=== PATIENT | female | born 1965 | race Caucasian/White ===

== ENCOUNTER 2018-03-16 06:07 | Day surgery (SDC) | payer OTHER ==
[~2018-03-16] VITALS: Ht 152.4 cm; Wt 75.5 kg
[~2018-03-16 06:07] MED LIST: ACET-48 PO; ACID1TAB4 PO; ARIP30TA11 PO; ASCO500 PO; CARB-224 AU; CRAN500C3 PO; CYAN100 PO; DOCU100C19 PO; FOLI1TAB15 PO; GUAI100S42 PO; LOPE2CAP PO; LORA10TA7 PO; MIRALAX PO; MOM30 PO; MULT-1112 PO; OLAN5TAB2 PO; OLAN7.5T9 PO; OLOP5DRO14 OU; OXYB5TAB10 PO; RINGERS SOLUTION,LACTATED 1,000 ML IV ONE; SIME80TA12 PO; TRAM50TA4 PO; [UNRECOGNIZED DRUG - CODE] PO
[2018-03-16] MEDS ORDERED: DEXAMETHASONE SOD PHOS 4 MG/ML VIAL IVP ONE (06:08)
[2018-03-16] MEDS ORDERED: LIDOCAINE HCL/PF 2% 5 ML VIAL IM ONE (06:08)
[2018-03-16] MEDS ORDERED: ONDANSETRON HCL 4 MG/2 ML VIAL IVP ONE (06:08)
[2018-03-16] MEDS ORDERED: PROPOFOL 1% 20 ML VIAL IVP ONE (06:08)
[2018-03-16] MEDS ORDERED: MIDAZOLAM HCL 2 MG/2 ML VIAL IVP ONE (06:08)
[2018-03-16] MEDS ORDERED: SUCCINYLCHOLINE CHLORIDE 20 MG/ML 10 ML VIAL IVP ONE (06:08)
[2018-03-16] MEDS ORDERED: RINGERS SOLUTION,LACTATED 1,000 ML IV ONE (06:45)
[2018-03-16 06:49] LABS: BASOPHILS % (AUTO) 0.3 % (0.0-2.0); EOSINOPHILS % (AUTO) 0 % (1.0-6.0); HEMATOCRIT 41.1 % (36-46); HEMOGLOBIN 14.5 g/dL (12.0-16.0); LYMPHOCYTES # (AUTO) 1.3 K/uL (1.0-4.8); LYMPHOCYTES % (AUTO) 19.3 % (22.0-44.0); MEAN CORPUSCULAR HEMOGLOBIN 34.6 pg (26.0-34.0); MEAN CORPUSCULAR HGB CONC 35.2 G/dL (31.0-37.0); MEAN CORPUSCULAR VOLUME 98 fL (80-100); MONOCYTES # (AUTO) 0.3 K/uL (0.1-1.0); MONOCYTES % (AUTO) 5.1 % (2.0-9.0); NEUTROPHILS # (AUTO) 5.2 K/uL (1.8-7.7); NEUTROPHILS % (AUTO) 75.3 % (40.0-70.0); PLATELET COUNT (AUTO) 253 K/uL (150-450); RED BLOOD CELL COUNT(AUTO) 4.18 MIL/uL (4.00-5.20); RED CELL DISTRIBUTION WIDTH 13.6 % (11.5-14.5)
[2018-03-16 07:08] LABS: INR 0.9 (0.9-1.1); PROTHROMBIN TIME 9.8 SEC (9.4-11.6)
[2018-03-16 07:13] LABS: ALANINE AMINOTRANSFERASE 27 U/L (12-78); ALBUMIN 3.3 g/dL (3.4-5.0); ALKALINE PHOSPHATASE 134 U/L (46-116); ANION GAP 9 mmol/L (8-16); ASPARTATE AMINOTRANSFERASE 20 U/L (15-37); BILIRUBIN,TOTAL 0.4 mg/dL (0.1-1.0); CALCIUM, TOTAL 8.5 mg/dL (8.8-10.5); CARBON DIOXIDE 29 mmol/L (22-29); CHLORIDE 105 mmol/L (98-107); CREATININE 0.61 mg/dL (0.60-1.30); GLOMERULAR FILTR. RATE CALC > 60 mL/min (>60); GLUCOSE,RANDOM 109 mg/dL (70-110); POTASSIUM 3.1 mmol/L (3.5-5.1); SODIUM SERUM 143 mmol/L (136-145); TOTAL PROTEIN, SERUM 6.8 g/dL (6.4-8.2); UREA NITROGEN, BLOOD 16 mg/dL (7-18)
[2018-03-16] MEDS ORDERED: POTASSIUM CHL 40 MEQ/D5-0.45NS 1,000 ML IV ONE (08:15)
[2018-03-16] MEDS ORDERED: CLINDAMYCIN PHOS 150 MG/ML 4 ML VIAL ONE (08:23)
[2018-03-16] MEDS ORDERED: SODIUM CHLORIDE 0.9% 250 ML IV ONE (08:30)
[2018-03-16] MEDS ORDERED: FentaNYL CITRATE-PF 100 MCG/2 ML VIAL IVP PRN (09:15)
[2018-03-16] MEDS ORDERED: MIDAZOLAM HCL 2 MG/2 ML VIAL ONE (09:23)
[2018-03-16] MEDS ORDERED: MIDAZOLAM HCL 2 MG/2 ML VIAL IVP STA (09:34)
== END 2018-03-16 12:00 | disposition home or self-care (01) ==
LOC: SURGERY 06:07
PROVIDERS: ATTEND Dentist General Practice
DX: K05.30 Chronic periodontitis, unspecified (principal); K21.9 Gastro-esophageal reflux disease without esophagitis; E87.6 Hypokalemia; Q04.8 Other specified congenital malformations of brain; M16.9 Osteoarthritis of hip, unspecified; I10 Essential (primary) hypertension; F41.8 Other specified anxiety disorders; F78 Other intellectual disabilities; Z79.01 Long term (current) use of anticoagulants; Z88.1 Allergy status to other antibiotic agents; Z88.0 Allergy status to penicillin; Z79.891 Long term (current) use of opiate analgesic; Z79.899 Other long term (current) drug therapy
CPT/HCPCS: 36415; 41899; 71045; 80053; 85025; 85610; 85730; 93005; J0330; J1100; J2250; J2405; J2704; J3480; J3490; J7050; J7120; S0077

== ENCOUNTER 2020-02-16 05:53 | Day surgery (SDC) | payer OTHER, MEDICARE, MEDICAID ==
[~2020-02-16] VITALS: Ht 152.4 cm; Wt 64.4 kg
[~2020-02-16 05:53] MED LIST changes: -ACET-48 PO; +ACET-49 PO; +BISM262O11 PO; -CYAN100 PO; +CYAN100T3 PO; +DOCU-281 PO; -DOCU100C19 PO; -OXYB5TAB10 PO; +OXYB5TAB15 PO; -RINGERS SOLUTION,LACTATED 1,000 ML IV ONE; -[UNRECOGNIZED DRUG - CODE] PO
[2020-02-16] MEDS ORDERED: SENN8.6T20 PO (06:14)
[2020-02-16] MEDS ORDERED: LEVO25TA9 PO (06:14)
[2020-02-16] MEDS ORDERED: RINGERS SOLUTION,LACTATED 1,000 ML IV ONE (06:30)
[2020-02-16 08:04] LABS: BASOPHILS % (AUTO) 0.3 % (0.0-2.0); EOSINOPHILS % (AUTO) 0 % (1.0-6.0); HEMATOCRIT 38.7 % (36-46); HEMOGLOBIN 13.3 g/dL (12.0-16.0); LYMPHOCYTES # (AUTO) 0.5 K/uL (1.0-4.8); LYMPHOCYTES % (AUTO) 8.6 % (22.0-44.0); MEAN CORPUSCULAR HEMOGLOBIN 35.3 pg (26.0-34.0); MEAN CORPUSCULAR HGB CONC 34.5 G/dL (31.0-37.0); MEAN CORPUSCULAR VOLUME 102 fL (80-100); MONOCYTES # (AUTO) 0.2 K/uL (0.1-1.0); MONOCYTES % (AUTO) 3.8 % (2.0-9.0); NEUTROPHILS # (AUTO) 4.6 K/uL (1.8-7.7); PLATELET COUNT (AUTO) 213 K/uL (150-450); RED BLOOD CELL COUNT(AUTO) 3.78 MIL/uL (4.00-5.20); RED CELL DISTRIBUTION WIDTH 13.7 % (11.5-14.5)
[2020-02-16 08:10] LABS: NEUTROPHILS % (AUTO) 87.3 % (40.0-70.0)
[2020-02-16 08:13] LABS: ANION GAP 12 mmol/L (8-16); CALCIUM, TOTAL 8.1 mg/dL (8.8-10.5); CARBON DIOXIDE 26 mmol/L (22-29); CHLORIDE 108 mmol/L (98-107); CREATININE 0.57 mg/dL (0.60-1.30); GLOMERULAR FILTR. RATE CALC > 60 mL/min (>60); GLUCOSE,RANDOM 144 mg/dL (70-110); POTASSIUM 3.4 mmol/L (3.5-5.1); SODIUM SERUM 146 mmol/L (136-145); UREA NITROGEN, BLOOD 14 mg/dL (7-18)
[2020-02-16 08:19] LABS: ALANINE AMINOTRANSFERASE 18 U/L (12-78); ALBUMIN 2.9 g/dL (3.4-5.0); ALKALINE PHOSPHATASE 141 U/L (46-116); ASPARTATE AMINOTRANSFERASE 7 U/L (15-37); BILIRUBIN,TOTAL 0.3 mg/dL (0.1-1.0); TOTAL PROTEIN, SERUM 6.3 g/dL (6.4-8.2)
[2020-02-16 08:24] LABS: PROTHROMBIN TIME 9.8 SEC (9.4-11.6)
[2020-02-16] MEDS ORDERED: CLINDAMYCIN PHOS 150 MG/ML 4 ML VIAL ONE (09:10)
[2020-02-16] MEDS ORDERED: SODIUM CHLORIDE 0.9% 100 ML ONE (09:10)
[2020-02-16 09:47] LABS: GLUCOMETER DEV NAME(LOC) PVLAB.13
[2020-02-16] MEDS ORDERED: HYDROmorphone 2 MG/ML SYRINGE IVP PRN (10:00)
[2020-02-16] MEDS ORDERED: FentaNYL CITRATE-PF 100 MCG/2 ML VIAL IVP PRN (10:00)
[2020-02-16] MEDS ORDERED: MEPERIDINE-PF 25 MG/ML VIAL IVP PRN (10:00)
[2020-02-16] MEDS ORDERED: OXYGEN THERAPY IH SCH (20:00)
== END 2020-02-16 14:10 | disposition home or self-care (01) ==
LOC: SURGERY 05:53
PROVIDERS: ATTEND Dentist General Practice
DX: K02.9 Dental caries, unspecified (principal); K05.312 Chronic periodontitis, localized, moderate; E03.9 Hypothyroidism, unspecified; F41.9 Anxiety disorder, unspecified; M16.12 Unilateral primary osteoarthritis, left hip; N31.9 Neuromuscular dysfunction of bladder, unspecified; F79 Unspecified intellectual disabilities; Z88.0 Allergy status to penicillin; Z91.040 Latex allergy status; Z79.899 Other long term (current) drug therapy; Z79.01 Long term (current) use of anticoagulants; Z11.59 Encounter for screening for other viral diseases
CPT/HCPCS: 36415; 41899; 71045; 80053; 85025; 85610; 85730; 87635; 93005; J3490; J7050; S0077